=== PATIENT | female | born 1960 | race Caucasian/White ===

== ENCOUNTER 2018-08-04 18:20 | Inpatient (IN) | payer OTHER ==
[2018-08-04 18:27] VITALS: BMI 25.7
--- NOTE | 2018-08-04 19:03 | PDOC ---
History of Present Illness - General Chief Complaint: Chest Pain Stated Complaint: CHEST PAIN Time Seen by Provider: 08/04/18 19:03 History Source: Patient Exam Limitations: No Limitations - History of Present Illness Initial Comments: 08/04/18 19:19 57 year old female with PMH bipolar disorder, hypothyroid, HLD, overactive bladder presenting to ED for chest pain x45 minutes. She states that she was sitting down with her family member in the ED, when she began to feel chest pain. She describes her chest pain to be located substernally, 8, described as pressure/sharp, radiating from her back, no alelviating factors, no aggravating factors. She states she developed upper back pain x2 hours ago. She admits to generalized weakness. She denies fever, nausea, vomiting, diarrhea , abdominal pain, cough, shortness of breath, dysuria, headache, palpitations. She states she has had chills off and on for the last week. Pt states her sister of an [place] at 53 years old. Past History - Past Medical History Allergies/Adverse Reactions: Allergies Allergy/AdvReac Type Severity Reaction Status Date / Time Sulfa (Sulfonamide Allergy Verified 08/04/18 18:23 Antibiotics) Home Medications: Ambulatory Orders Asenapine Maleate [Saphris] 10 mg SL BID 08/04/18 Clonazepam [Klonopin] 0.5 mg PO HS 08/04/18 Levothyroxine [Synthroid -] 100 mcg PO DAILY 08/04/18 Simvastatin 20 mg PO HS 08/04/18 Tolterodine Tartrate [Detrol LA] 2 mg PO DAILY 08/04/18 Zolpidem Tartrate [Ambien] 10 mg PO PRN 08/04/18 COPD: No Hypercholesterolemia: Yes Psychiatric Problems: Yes (BIPOLAR) Thyroid Disease: Yes Other medical history: OVERACTIVE BLADDER - Surgical History Abdominal Surgery: Yes (ENDOMETRIAL ABLATION) - Suicide/Smoking/Psychosocial Hx Smoking History: Current every day smoker Have you smoked in the past 12 months: Yes Number of Cigarettes Smoked Daily: 20 Information on smoking cessation initiated: Yes 'Breaking Loose' booklet given: 08/04/18 Hx Alcohol Use: No Drug/Substance Use Hx: No Substance Use Type: None Review of Systems - Review of Systems Able to Perform ROS?: Yes Comments:: 09/29/18 19:28 General: admits to generalized weakness, chills. denies fever, night sweats. HEENT: denies sore throat, rhinorrhea, ear pain. Heart: admits to chest pain. denies palpitations, syncope, lower extremity swelling, diaphoresis. Respiratory: denies shortness of breath, cough, sputum production, hemoptysis. Abdomen: denies abdominal pain, nausea, vomiting, diarrhea, constipation, blood in stool. : denies dysuria, increased urinary frequency, hematuria, urinary incontinence , flank pain. Back: denies back pain. Musculoskeletal: denies joint pain, muscle pain, joint swelling. Neurological: denies headache, dizziness, numbness, tingling, weakness. Skin: denies rash, laceration, abrasion. *Physical Exam - Vital Signs Last Vital Signs Temp Pulse Resp BP Pulse Ox 98.4 F 114 H 18 114/72 100 08/04/18 18:23 08/04/18 18:23 08/04/18 18:23 08/04/18 18:23 08/04/18 18:23 - Physical Exam Comments: 08/04/18 19:29 Constitutional: Well-nourished, Well-developed, appearing stated age. HEENT: head is normocephalic, atraumatic. EOMI. PERRLA. Neck: supple. Full ROM. Heart: regular rhythm. no murmurs, rubs or gallops. Lungs: clear to auscultation bilaterally. no crackles, rhonchi or wheezing. no stridor. Abdomen: soft, nontender. normal bowel sounds. no rebound, guarding, masses. Extremities: radial pulses intact and equal. DPS pulses intact and equal. No lower extremity edema. Neurological: CN 2-12 grossly intact. Moves all four extremities. Psych: awake, alert, oriented x3. Follows commands. Answers questions appropriately. ED Treatment Course - LABORATORY CBC & Chemistry Diagram: 08/04/18 19:18 08/04/18 19:18 Medical Decision Making - Medical Decision Making 08/04/18 19:30 57 year old female with PMH bipolar disorder, hypothyroid, HLD, overactive bladder presenting to ED for chest pain x45 minutes associted with back pain x2 hours and generalized weakness today and chills x1 week. Initial Vital Signs Temp Pulse Resp BP Pulse Ox 98.4 F 114 H 18 114/72 100 08/04/18 18:23 08/04/18 18:23 08/04/18 18:23 08/04/18 18:23 08/04/18 18:23 Afebrile. Tachycardic. No hypertension. No hypoxia on room air. Concern for ACS, chest pain, sister of [place] at 53 yo - Pending EKG, cardiac enzymes, CBC, CMP, PT/PTT, CXR - ASA ordered Low concern for PE, tachycardic, not hypoxic, pt denies train/plane/bus/car rides >5 hours, no hx malignancy, no estrogen usage. - No CTA indicated at this time. Low concern for thoracic aneurysm, (+) back pain, but equal pulses, no hx marfans/turners/eddie danlos - Pending CXR - No CTA indicated at this time. EKG performed at 1821 - rate 91, regular rhythm, flipped Ts in the inferior leads, <[address] depression V3/V4/V5, with flipped Ts V3-V6. 08/04/18 19:46 Pt reassessed. New vitals: - HR 73 - Right BP: 116/58 - Left BP: 109/55 08/04/18 20:04 CBC WBC 7.8 K/mm3 (4.0-10.0) 08/04/18 19: RBC 4.08 M/mm3 (3.60-5.2) 08/04/18 19:18 Hgb 13.5 GM/dL (10.7-15.3) 08/04/18 19:18 Hct 40.2 % (32.4-45.2) 08/04/18 19:18 MCV 98.4 fl (80-96) H 08/04/18 19:18 MCH 33.0 pg (25.7-33.7) 08/04/18 19: MCHC 33.5 g/dl (32.0-36.0) 08/04/18 19:18 RDW 14.5 % (11.6-15.6) 08/04/18 19:18 Plt Count 203 K/MM3 (134-434) 08/04/18 19:18 MPV 9.9 fl (7.5-11.1) 08/04/18 19:18 Absolute Neuts (auto) 4.3 K/mm3 (1.5-8.0) 08/04/18 19:18 Neutrophils % 55.2 % (42.8-82.8) 08/04/18 19:18 Lymphocytes % 36.7 % (8-40) 08/04/18 19:18 Monocytes % 6.1 % (3.8-10.2) 08/04/18 19:18 Eosinophils % 1.7 % (0-4.5) 08/04/18 19:18 Basophils % 0.3 % (0-2.0) 08/04/18 19:18 Nucleated RBC % 0 % (0-0) 08/04/18 19:18 No leukocytosis. No anemia. CMP Sodium 141 mmol/L (136-145) 08/04/18 19:18 Potassium 3.9 mmol/L (3.5-5.1) 08/04/18 19:18 Chloride 105 mmol/L (98-107) 08/04/18 19:18 Carbon Dioxide 24 mmol/L (21-32) 08/04/18 19:18 Anion Gap 12 MMOL/L (8-16) 08/04/18 19:18 BUN 13 mg/dL (7-18) 08/04/18 19:18 Creatinine 0.8 mg/dL (0.55-1.3) 08/04/18 19:18 Creat Clearance w eGFR > 60 (>60) 08/04/18 19:18 Random Glucose 82 mg/dL (74-106) 08/04/18 19:18 Calcium 9.6 mg/dL (8.5-10.1) 08/04/18 19:18 Magnesium 2.0 mg/dL (1.8-2.4) 08/04/18 19:18 Total Bilirubin 0.4 mg/dL (0.2-1) 08/04/18 19:18 AST 12 U/L (15-37) L 08/04/18 19:18 ALT 26 U/L (13-61) 08/04/18 19:18 Alkaline Phosphatase 70 U/L (45-117) 08/04/18 19:18 Creatine Kinase 35 IU/L (26-192) 08/04/18 19:18 Troponin I < 0.02 ng/ml (0.00-0.05) 08/04/18 19:18 Total Protein 7.6 g/dl (6.4-8.2) 08/04/18 19:18 Albumin 4.2 g/dl (3.4-5.0) 08/04/18 19:18 No electrolyte abnormalities. First cardiac enzymes negative. Will re-draw at 4 hours post start of chest pain. INR, PTT INR 1.06 (0.83-1.09) 08/04/18 19:18 No coagulopathy. 08/04/18 20:39 CXR - sharp costophrenic angles, no infiltrate noted, no widened mediastinum, no cardiomegaly. 08/04/18 20:49 Pt reassessed, states chest pain is still present. 08/04/18 21:29 Pt will be admitted for chest pain. - Arjun Mcwilliams ordered 08/04/18 21:59 Pt reassessed, states pain is a 5/10. 08/04/18 22:[address] Carlton, who request the pt to be placed on ED obs, EKG repeated, and trend troponins. He request cardio consult if repeat EKG shows ST changes. - Pending EKG - Will order troponin 08/04/18 22:55 Repeat troponin negative. EKG performed at 2214 - rate 69, regular rhythm, normal axis, normal intervals, flipped T V3. flattened T V4/V5, III/AVF. 08/04/18 23:01 Cardio paged. 08/04/18 23:09 I spoke with cardiology, Dr. Kay, who advises continued observation and repeat troponin. I microblogged cardiology recs to admitting team, Dr. Carlton. 08/05/18 03:56 Third troponin negative. *DC/Admit/Observation/Transfer Diagnosis at time of Disposition: Chest pain - Discharge Dispostion Condition at time of disposition: Stable Decision to Admit order: Yes - Referrals - Patient Instructions - Post Discharge Activity
[2018-08-04] MEDS ORDERED: ASPIRIN 81 MG CHEWABLE TABLETS PO ONE (19:10)
--- NOTE | 2018-08-04 19:18 | PDOC ---
Attending Attestation - HPI HPI: 08/04/18 20:18 The patient is a 57 year old female with a significant PMH of hyperlipidemia, bipolar disorder and hypothyroidism who presents to the emergency department with chest pain for about 45 minutes while in the ED today. The patient reports that her chest pain is substernal, sharp and pressure-like. She reports that her symptoms began with upper back pain. She denies any alleviating or aggravating factors. The patient also reports experiencing some chills for about 1 week. The patient denies any other symptoms. She denies any fever, nausea, vomiting, diarrhea, constipation, or urinary symptoms. She denies any shortness of breath, headache or dizziness. The patient denies any other complaints. Documentation prepared by Adi Morton, acting as caregivers non medical for Jaye Briggs MD. - Physicial Exam PE: 08/04/18 20:19 GENERAL: Awake, alert, and fully oriented, in no acute distress HEAD: No signs of trauma EYES: PERRLA, EOMI, sclera anicteric, conjunctiva clear ENT: Auricles normal inspection, hearing grossly normal, nares patent, oropharynx clear without exudates. Moist mucosa NECK: Normal ROM, supple, no lymphadenopathy, JVD, or masses LUNGS: Breath sounds equal, clear to auscultation bilaterally. No wheezes, and no crackles HEART: Regular rate and rhythm, normal S1 and S2, no murmurs, rubs or gallops ABDOMEN: Soft, nontender, normoactive bowel sounds. No guarding, no rebound. No masses EXTREMITIES: Normal range of motion, no edema. No clubbing or cyanosis. No cords, erythema, or tenderness NEUROLOGICAL: Cranial nerves II through XII grossly intact. Normal speech, normal gait SKIN: Warm, Dry, normal turgor, no rashes or lesions noted. <Adi Morton - Last Filed: 08/04/18 20:18> - Resident Resident Name: Marlene Shin - ED Attending Attestation I have performed the following: I have examined & evaluated the patient, The case was reviewed & discussed with the resident, I agree w/resident's findings & plan - Medical Decision Making 08/04/18 21:23 Pt was in the ER all day with her aunt who is a patient; suddenly pt developed MSCP; she states that she has high cholesterol and bipolar d/o. She is visiting from [place] and she has no physicians here. She has no other complaints. States that she has had nothing to eat all day. 1st trop and all labs are normal. 08/04/18 22:35 TSH is slightly elevated and pt likely isn't taking sufficient dose of her synthroid. 2nd EKG is normal. 08/04/18 22:40 If 2nd trop is normal, pt will be discharged home. 08/05/18 20:29 Cardiology consulted, and they are recommending that the patient stay for 24 hrs obs. She is stable and feels better. <Jaye Briggs - Last Filed: 08/05/18 20:30> Heart Score/ECG Review - History History: Slightly suspicious - Age Age: 45-65 - Risk Factors Risk Factors Heart Score: Yes Hx Hypercholesterolemia Based on the list above the patient has:: 1-2 risk factors - Troponin Troponin: </= normal limit - ECG Intrepretation Rhythm: Regular Rhythm - [place]: Normal - P and CO Delta Wave(s) Present: No WPW: No - QRS Poor R Wave Progression: No Q Wave Present: No - ST and T Early Repolarization: No Non Specific ST-T Wave changes: Yes ST Depression Suggest: Ischemia - ECG Impressions Normal ECG: No Non-specific ST Elevation: No <Jaye Briggs - Last Filed: 08/05/18 20:30>
[2018-08-04] MEDS ORDERED: ASPIRIN 81 MG CHEWABLE TABLETS ONE (19:25)
[2018-08-04 19:36] LABS: BASO % 0.3 % (0-2.0); EOS % 1.7 % (0-4.5); HEMATOCRIT 40.2 % (32.4-45.2); HEMOGLOBIN 13.5 GM/dL (10.7-15.3); LYMPH % 36.7 % (8-40); MCHC 33.5 g/dl (32.0-36.0); MEAN CELL VOLUME 98.4 fl (80-96); MEAN PLT VOLUME 9.9 fl (7.5-11.1); MONO % 6.1 % (3.8-10.2); NEUT % 55.2 % (42.8-82.8); PLATELET COUNT 203 K/MM3 (134-434); RBC 4.08 M/mm3 (3.60-5.2); RDW 14.5 % (11.6-15.6); WHITE BLOOD COUNT 7.8 K/mm3 (4.0-10.0)
[2018-08-04 19:50] LABS: ALBUMIN 4.2 g/dl (3.4-5.0); ALK PHOS 70 U/L (45-117); ANION GAP 12 MMOL/L (8-16); BILIRUBIN,TOTAL 0.4 mg/dL (0.2-1); BLOOD UREA NITROGEN 13 mg/dL (7-18); CALCIUM 9.6 mg/dL (8.5-10.1); CHLORIDE 105 mmol/L (98-107); CO2 24 mmol/L (21-32); CREATININE 0.8 mg/dL (0.55-1.3); GLUCOSE,RANDOM 82 mg/dL (74-106); POTASSIUM 3.9 mmol/L (3.5-5.1); SGOT/AST 12 U/L (15-37); SGPT/ALT 26 U/L (13-61); SODIUM 141 mmol/L (136-145); TOT PROT 7.6 g/dl (6.4-8.2)
[2018-08-04 19:51] LABS: INR 1.06 (0.83-1.09); PROTHROMBIN TIME (PATIENT) 12.5 SEC (9.7-13.0)
[2018-08-04] MEDS ORDERED: MAG HYDROX/AL HYDROX/SIMETH 30 ML UNIT-DOSE CUP PO ONE (21:08)
[2018-08-04] MEDS ORDERED: FAMOTIDINE 20 MG/50 ML IVPB 20 MG/50 ML MG IVPB ONE ×2 (21:08→21:16)
[2018-08-04] MEDS ORDERED: SODIUM CHLORIDE 0.9% 500 ML INFUS.BAG IV ONE (21:08)
[2018-08-04] MEDS ORDERED: MAG HYDROX/AL HYDROX/SIMETH 30 ML UNIT-DOSE CUP ONE (21:15)
--- NOTE | 2018-08-04 23:43 | HP ---
Admitting History and Physical - Admission Chief Complaint: chest pain History Source: Patient Limitations to Obtaining History: No Limitations - Smoking History Smoking history: Current every day smoker Have you smoked in the past 12 months: Yes Aproximately how many cigarettes per day: 20 - Alcohol/Substance Use Hx Alcohol Use: No Home Medications - Allergies Allergies/Adverse Reactions: Allergies Allergy/AdvReac Type Severity Reaction Status Date / Time Sulfa (Sulfonamide Allergy Verified 08/04/18 18:23 Antibiotics) - Home Medications Home Medications: Ambulatory Orders Asenapine Maleate [Saphris] 10 mg SL BID 08/04/18 Clonazepam [Klonopin] 0.5 mg PO HS 08/04/18 Levothyroxine [Synthroid -] 100 mcg PO DAILY 08/04/18 Simvastatin 20 mg PO HS 08/04/18 Tolterodine Tartrate [Detrol LA] 2 mg PO DAILY 08/04/18 Zolpidem Tartrate [Ambien] 10 mg PO PRN 08/04/18 Review of Systems - Review of Systems Constitutional: reports: No Symptoms Eyes: reports: No Symptoms HENT: reports: No Symptoms Neck: reports: No Symptoms Cardiovascular: reports: Chest Pain Respiratory: reports: No Symptoms Gastrointestinal: reports: No Symptoms Genitourinary: reports: No Symptoms Breasts: reports: No Symptoms Reported Physical Examination Vital Signs: Vital Signs Temperature 98.4 F 08/04/18 18:23 Pulse Rate 63 08/04/18 19:51 Respiratory Rate 17 08/04/18 19:51 Blood Pressure 109/55 L 08/04/18 19:51 O2 Sat by Pulse Oximetry (%) 98 08/04/18 19:51 Constitutional: Yes: Well Nourished, Calm Eyes: Yes: WNL, Conjunctiva Clear, EOM Intact HENT: Yes: WNL, Atraumatic, Normocephalic Neck: Yes: WNL, Supple, Trachea Midline Cardiovascular: Yes: WNL, Regular Rate and Rhythm, S1, S2 Respiratory: Yes: Regular, CTA Bilaterally Gastrointestinal: Yes: WNL, Normal Bowel Sounds, Soft ...Rectal Exam: Yes: Deferred Labs: CBC, BMP 08/04/18 19:18 08/04/18 19:18 Imaging - Results Chest X-ray: Image Reviewed EKG: Image Reviewed Problem List - Problems (1) Chest pain Assessment/Plan: 57 y/o female presented to the hospital with atypical chest pain patient stated that she has had this before while she was in [place], for which she had undergone an exercise stress test, the patient stated that she was discharged after that without any further tests. plan: admit as observation cardiology consultation trend trop x3 trend ECG c/w home medication Code(s): R07.9 - CHEST PAIN, UNSPECIFIED
[2018-08-05] MEDS ORDERED: ZOLPIDEM TARTRATE 5 MG TABLET PO PRN (00:39)
[2018-08-05] MEDS ORDERED: LEVOTHYROXINE NA 125 MCG TABLET (FP) PO SCH (07:00)
[2018-08-05] MEDS ORDERED: ASENAPINE 10 MG SL SCH (10:00)
[2018-08-05] MEDS ORDERED: TOLTERODINE TARTRATE LA 2 MG CAP.SR.24H PO SCH (10:00)
[2018-08-05] MEDS ORDERED: ENOXAPARIN NA (PORCINE) 40 MG/0.4 ML DISP.SYRIN SQ SCH (10:00)
--- NOTE | 2018-08-05 11:36 | DS ---
Physical Exam: SUBJECTIVE: Patient seen and examined, no chest pain. feels stressed as will need to take care of her aunt. But no SI or HI noted. reports non compliance with her levothyroxine. OBJECTIVE: Vital Signs Period Temp Pulse Resp BP Sys/Covarrubias Pulse Ox Last 24 Hr 98.4 F-98.5 F 59-114 17-18 105-120/53-72 98-100 PHYSICAL EXAM GENERAL: The patient is awake, alert, and fully oriented, in no acute distress. HEAD: Normal with no signs of trauma. EYES: PERRL, extraocular movements intact, sclera anicteric, conjunctiva clear. ENT: Ears normal, nares patent, oropharynx clear without exudates, moist mucous membranes. NECK: Trachea midline, full range of motion, supple. LUNGS: Breath sounds equal, clear to auscultation bilaterally, no wheezes, no crackles, no accessory muscle use. HEART: Regular rate and rhythm, S1, S2 without murmur, rub or gallop. ABDOMEN: Soft, nontender, nondistended, normoactive bowel sounds, no guarding, no rebound, no hepatosplenomegaly, no masses. EXTREMITIES: 2+ pulses, warm, well-perfused, no edema. NEUROLOGICAL: Cranial nerves II through XII grossly intact. Normal speech, gait not observed. PSYCH: Normal mood, normal affect. SKIN: Warm, dry, normal turgor, no rashes or lesions noted. LABS Laboratory Results - last 24 hr 08/04/18 08/04/18 08/04/18 19:18 19:18 19:18 WBC 7.8 RBC 4.08 Hgb 13.5 Hct 40.2 MCV 98.4 H MCH 33.0 MCHC 33.5 RDW 14.5 Plt Count 203 MPV 9.9 Absolute Neuts (auto) 4.3 Neutrophils % 55.2 Lymphocytes % 36.7 Monocytes % 6.1 Eosinophils % 1.7 Basophils % 0.3 Nucleated RBC % 0 PT with INR 12.50 INR 1.06 PTT (Actin FS) Sodium 141 Potassium 3.9 Chloride 105 Carbon Dioxide 24 Anion Gap 12 BUN 13 Creatinine 0.8 Creat Clearance w eGFR > 60 Random Glucose 82 Calcium 9.6 Magnesium 2.0 Total Bilirubin 0.4 AST 12 L ALT 26 Alkaline Phosphatase 70 Creatine Kinase 35 Troponin I < 0.02 Total Protein 7.6 Albumin 4.2 TSH 09/29/18 09/29/18 09/30/18 19:18 21:30 03:00 WBC RBC Hgb Hct MCV MCH MCHC RDW Plt Count MPV Absolute Neuts (auto) Neutrophils % Lymphocytes % Monocytes % Eosinophils % Basophils % Nucleated RBC % PT with INR INR PTT (Actin FS) 28.8 Sodium Potassium Chloride Carbon Dioxide Anion Gap BUN Creatinine Creat Clearance w eGFR Random Glucose Calcium Magnesium Total Bilirubin AST ALT Alkaline Phosphatase Creatine Kinase Troponin I < 0.02 < 0.02 Total Protein Albumin TSH 4.13 H Tn neg. HOSPITAL COURSE: Date of Admission:08/04/18 Date of Discharge: 08/05/18 Minutes to complete discharge: 35 Discharge Summary Reason For Visit: CHEST PAIN Current Active Problems Chest pain (Acute) Hospital Course: patient was watched on telemetry with no concerns.ACS was ruled out. She was evaluated by cardiology and deemed stable for discharge. Her current stressor ( aunt in the hospital) likely contributory to her symptoms. She reportedly had a stress test 3 months ago that per her, was unremarkable. Her TSH was noted elevated, T4 is pending.She reported non compliance with her levothyroxine. Patient was counseled on compliance with her levothyroxine and have follow up TFTs with her PCP in 2-3 weeks. She relayed understanding and was in agreement. Condition: Good - Instructions Diet, Activity, Other Instructions: You were watched on heart monitor and blood work was normal You were evaluated by cardiology and recommended outpatient follow up. Your thyroid test was abnormal and you are strongly recommended to continue levothyroxine as advised by your regular doctor and have a follow up thyroid test in 2-3 weeks. Follow up with your regular doctor in 1-2 weeks. Thyroid function tests in 2-3 weeks. Call 911 or come to ED if any new concerns. Disposition: HOME - Home Medications Comprehensive Discharge Medication List: Ambulatory Orders Asenapine Maleate [Saphris] 10 mg SL BID 08/04/18 Clonazepam [Klonopin] 0.5 mg PO HS 08/04/18 Levothyroxine [Synthroid -] 100 mcg PO DAILY 08/04/18 Simvastatin 20 mg PO HS 08/04/18 Tolterodine Tartrate [Detrol LA] 2 mg PO DAILY 08/04/18 Zolpidem Tartrate [Ambien] 10 mg PO PRN 08/04/18 This patient is new to me today: Yes Date on this admission: 08/05/18 Emergency Visit: Yes ED Registration Date: 08/04/18 Care time: The patient presented to the Emergency Department on the above date and was hospitalized for further evaluation of their emergent condition. Critical Care patient: No - Discharge Referral Referred to [facility] No
[2018-08-05 12:38] VITALS: TEMP 97.6
[2018-08-05 12:48] VITALS: BP 122/88; PULSE 65
[2018-08-05] MEDS ORDERED: clonazePAM 0.5 MG TABLET PO SCH (22:00)
[2018-08-05] MEDS ORDERED: ATORVASTATIN CA 10 MG TABLET (FP) PO SCH (22:00)
--- NOTE | 2018-08-06 06:16 | EKG ---
Test Reason : Blood Pressure : / mmHG Vent. Rate : 169 BPM Atrial Rate : 110 BPM P-R Int : 100 ms QRS Dur : 120 ms QT Int : 244 ms P-R-T Axes : 030 009 -02 degrees QTc Int : 409 ms Suspect unspecified pacemaker failure UNDETERMINED RHYTHM LOW VOLTAGE QRS ANTEROLATERAL INFARCT , AGE UNDETERMINED ABNORMAL ECG WHEN COMPARED WITH ECG OF 04-AUG-2018 18:21, CURRENT UNDETERMINED RHYTHM PRECLUDES RHYTHM COMPARISON, NEEDS REVIEW QUESTIONABLE CHANGE IN QRS DURATION ANTERIOR INFARCT IS NOW PRESENT ANTEROLATERAL INFARCT IS NOW PRESENT RIGHT SIDED EKG MARKED BASELINE ARTIFACT PRECLUDES CLEAR INTERPRETATION: SUGGEST REPEAT STUDY Confirmed by NATHANIEL SOTO, KAYLA ([id number]) on 08/06/2018 6:16:08 AM Referred By: Confirmed By:KAYLA ARMSTRONG MD
--- NOTE | 2018-08-06 06:29 | EKG ---
Test Reason : Blood Pressure : / mmHG Vent. Rate : 070 BPM Atrial Rate : 070 BPM P-R Int : 142 ms QRS Dur : 078 ms QT Int : 406 ms P-R-T Axes : 054 025 005 degrees QTc Int : 438 ms NORMAL SINUS RHYTHM CANNOT RULE OUT ANTERIOR INFARCT , AGE UNDETERMINED ABNORMAL ECG WHEN COMPARED WITH ECG OF 04-AUG-2018 22:14, NO SIGNIFICANT CHANGE WAS FOUND Confirmed by KAYLA ARMSTRONG MD ([id number]) on 08/06/2018 6:28:55 AM Referred By: Confirmed By:KAYLA ARMSTRONG MD
--- NOTE | 2018-08-06 06:31 | EKG ---
Test Reason : Blood Pressure : / mmHG Vent. Rate : 069 BPM Atrial Rate : 069 BPM P-R Int : 112 ms QRS Dur : 078 ms QT Int : 414 ms P-R-T Axes : 020 032 015 degrees QTc Int : 443 ms NORMAL SINUS RHYTHM NORMAL ECG WHEN COMPARED WITH ECG OF 04-AUG-2018 20:17, PREVIOUS ECG HAS UNDETERMINED RHYTHM, NEEDS REVIEW QUESTIONABLE CHANGE IN QRS DURATION CRITERIA FOR ANTERIOR INFARCT ARE NO LONGER PRESENT CRITERIA FOR ANTEROLATERAL INFARCT ARE NO LONGER PRESENT Confirmed by KAYLA ARMSTRONG MD ([id number]) on 08/06/2018 6:31:29 AM Referred By: Confirmed By:KAYLA ARMSTRONG MD
--- NOTE | 2018-08-06 06:31 | EKG ---
Test Reason : Blood Pressure : / mmHG Vent. Rate : 091 BPM Atrial Rate : 091 BPM P-R Int : 118 ms QRS Dur : 078 ms QT Int : 352 ms P-R-T Axes : 071 055 -40 degrees QTc Int : 432 ms NORMAL SINUS RHYTHM WITH SINUS ARRHYTHMIA POSSIBLE LEFT ATRIAL ENLARGEMENT ABNORMAL ECG NO PREVIOUS ECGS AVAILABLE Confirmed by KAYLA ARMSTRONG MD ([id number]) on 08/06/2018 6:31:10 AM Referred By: Confirmed By:KAYLA ARMSTRONG MD
== END 2018-08-05 12:50 | disposition home or self-care (01) | DRG 313 ==
LOC: JER 18:20 → OBSVTOIN 21:26 → JERBED 21:26
PROVIDERS: ADMIT Internal Medicine; ATTEND Hospitalist
DX: R07.89 Other chest pain (principal); F17.210 Nicotine dependence, cigarettes, uncomplicated; E78.5 Hyperlipidemia, unspecified; E03.9 Hypothyroidism, unspecified
CPT/HCPCS: 36415; 71046-TC-FY; 80053; 82550; 83735; 84439; 84443; 84484; 85025; 85610; 85730; 93005; 93010; 99285-25